=== PATIENT | male | born 1960 | race Caucasian/White ===

== ENCOUNTER → 2017-11-10 | Outpatient (REF) | payer BC ==
[2017-11-12 08:06] LABS: LDL DIRECT 98 mg/dL (0-99)
== END ==
LOC: M LAB REF 10:50
DX: E78.5 Hyperlipidemia, unspecified (principal)
CPT/HCPCS: 83721

== ENCOUNTER → 2018-02-23 | Outpatient (REF) | payer BC ==
[2018-02-24 08:10] LABS: LDL DIRECT 84 mg/dL (0-99)
== END ==
LOC: M LAB REF 13:17
DX: E78.5 Hyperlipidemia, unspecified (principal)
CPT/HCPCS: 83721

== ENCOUNTER → 2019-04-14 | Outpatient (REF) | payer BC ==
[2019-04-15 08:12] LABS: LDL DIRECT 106 mg/dL (0-99)
== END ==
LOC: M LAB REF 12:30
PROVIDERS: ATTEND Family Medicine
DX: E07.9 Disorder of thyroid, unspecified (principal); E78.5 Hyperlipidemia, unspecified

== ENCOUNTER → 2021-03-05 | Outpatient (REF) | payer BC ==
[2021-03-07 04:16] LABS: LDL DIRECT 112 mg/dL (0-99)
== END ==
LOC: M LAB REF 16:13
PROVIDERS: ATTEND Family Medicine
DX: E78.5 Hyperlipidemia, unspecified (principal)

== ENCOUNTER → 2022-03-11 | Outpatient (REF) | payer BC ==
[2022-03-12 08:12] LABS: LDL DIRECT 107 mg/dL (0-99)
== END ==
LOC: M LAB REF 13:09
PROVIDERS: ATTEND Family Medicine
DX: E78.5 Hyperlipidemia, unspecified (principal)

== ENCOUNTER → 2024-04-10 | Outpatient (REF) | payer MEDICARE, BC ==
[2024-04-12 07:37] LABS: LDL DIRECT 121 mg/dL (<100)
== END ==
LOC: M LAB REF 16:39
PROVIDERS: ATTEND Family Medicine
DX: E78.5 Hyperlipidemia, unspecified (principal)